=== PATIENT | female | born 1960 | race Caucasian/White ===

== ENCOUNTER 2016-08-27 10:40 | Outpatient (CLI) | payer BC ==
[2016-08-27 11:35] LABS: ALT (SGPT) 22 U/L (0-55); AST (SGOT) 22 U/L (5-34); Alkaline Phosphatase 78 U/L (40-150); Anion Gap 14 mmol/L (10-20); BUN (Urea Nitrogen) 17 mg/dL (9.8-20.1); Bilirubin, Total 0.4 mg/dL (0.2-1.2); Calc. Creatinine Clearance 0 mL/min (70-130); Calcium 9.1 mg/dL (7.8-10.44); Carbon Dioxide 24 mmol/L (22-29); Chloride 107 mmol/L (98-107); Estimated GFR-MDRD 55; LDL Cholesterol, Calculated 90 mg/dL; Protein, Total 7.1 g/dL (6.0-8.3)
[2016-08-27 15:19] LABS: Mean Platelet Volume 6.9 fL (7.4-10.4); Neutrophil 39 % (42-75); Reactive Lymphocytes 7 % (0-10); Red Blood Cell (RBC) Count 4.67 mill/uL (4.20-5.40); White Blood Cell (WBC) Count 5.5 thou/uL (4.8-10.8)
== END 2016-08-27 10:41 | disposition home or self-care (01) ==
LOC: NAV LAB 10:40
PROVIDERS: ATTEND Family Medicine
DX: E78.5 Hyperlipidemia, unspecified (principal); I10 Essential (primary) hypertension; F33.41 Major depressive disorder, recurrent, in partial remission
CPT/HCPCS: 36415; 80053; 80061; 84443; 85025

== ENCOUNTER 2016-12-04 22:53 | Emergency (ER) | payer BC, SELFPAY ==
[2016-12-04 23:20] LABS: Bilirubin Negative (Negative); Blood, Urine Negative (Negative); Clarity Clear (Clear); Glucose, Urine (Dipstick) Negative (Negative); Leukocyte Negative (Negative); Nitrite Negative (Negative); Protein, Urine (Dipstick) Trace mg/dL (Neg-Trace)
== END 2016-12-04 23:45 | disposition home or self-care (01) ==
LOC: NAV ERS 22:53
DX: R50.9 Fever, unspecified (principal); I10 Essential (primary) hypertension; E78.00 Pure hypercholesterolemia, unspecified; G62.9 Polyneuropathy, unspecified; F32.9 Major depressive disorder, single episode, unspecified; Z87.442 Personal history of urinary calculi; Z79.82 Long term (current) use of aspirin; Z79.899 Other long term (current) drug therapy
CPT/HCPCS: 81003; 99283

== ENCOUNTER 2017-07-25 14:40 | Outpatient (CLI) | payer BC ==
--- NOTE | 2017-07-25 15:07 | RAD ---
PA AND LATERAL CHEST: Date: 07/25/17 HISTORY: Acute bronchitis. FINDINGS: Heart size appears borderline. Mediastinal structures appear unremarkable. Lungs are clear of infiltr ates. IMPRESSION: Borderline heart size. POS: [facility]
== END 2017-07-25 14:41 | disposition home or self-care (01) ==
LOC: NAV RAD 14:40
PROVIDERS: ATTEND Family Medicine
DX: J20.9 Acute bronchitis, unspecified (principal)
CPT/HCPCS: 71020

== ENCOUNTER 2017-12-22 08:06 | Emergency (ER) | payer BC, SELFPAY ==
[2017-12-22] MEDS ORDERED: Lidocaine 1% 20 ML MDV ONE (08:44)
[2017-12-22] MEDS ORDERED: methylPREDNISolone Acetate 40 mg/ml Vial ONE (08:44)
[2017-12-22] MEDS ORDERED: cefTRIAXone\\ROCEPHIN 1 GM VIAL ONE (08:44)
== END 2017-12-22 09:19 | disposition home or self-care (01) ==
LOC: NAV ERS 08:06
DX: J20.9 Acute bronchitis, unspecified (principal); I10 Essential (primary) hypertension; E78.00 Pure hypercholesterolemia, unspecified; F32.9 Major depressive disorder, single episode, unspecified; Z79.899 Other long term (current) drug therapy; Z79.82 Long term (current) use of aspirin
CPT/HCPCS: 96372; J0696; J1030; J2001

== ENCOUNTER 2018-03-12 22:37 | Emergency (ER) | payer SELFPAY ==
[2018-03-12 23:00] LABS: Bilirubin Negative (Negative); Blood, Urine Negative (Negative); Clarity Clear (Clear); Glucose, Urine (Dipstick) Negative (Negative); Leukocyte Trace (Negative); Nitrite Negative (Negative); Protein, Urine (Dipstick) Trace mg/dL (Neg-Trace); Specific Gravity, Urine 1.015 (1.005-1.030); pH, Urine 5.5 (5.0-9.0)
[2018-03-12 23:07] LABS: Bacteria/HPF Rare-Few HPF (None Seen); RBC/HPF None Seen HPF (0-3); WBC/HPF 0-3 HPF (0-3)
[2018-03-12 23:08] LABS: Yeast-All Forms 1+ HPF (None Seen)
[2018-03-12] MEDS ORDERED: Ketorolac Tromethamine 30 MG/ML VIAL ONE (23:14)
[2018-03-12 23:42] LABS: #Basophils 0.1 thou/uL (0.0-0.2); #Lymphocytes 2.6 thou/uL (1.20-3.40); #Monocytes 0.7 thou/uL (0.11-0.59); #Neutrophils 2.7 thou/uL (1.40-6.50); %Basophils 1.6 % (0.0-1.0); %Eosinophils 0.3 % (0.0-10.0); %Monocytes 12.1 % (0.0-10.0); Hemoglobin 12.5 g/dL (12.0-16.0); Mean Corpuscular HGB CONC 32.8 g/dL (32.0-36.0); Mean Corpuscular Hemoglobin 28.8 pg (27.0-31.0); Mean Corpuscular Volume 87.8 fL (78.0-98.0); Mean Platelet Volume 7.4 fL (7.4-10.4); Platelet Count 282 thou/uL (130-400); RBC Distribution Width 11.4 % (11.5-14.5); Red Blood Cell (RBC) Count 4.33 mill/uL (4.20-5.40); White Blood Cell (WBC) Count 6.1 thou/uL (4.8-10.8)
[2018-03-12] MEDS ORDERED: Potassium Chloride 20 MEQ TAB ONE (23:50)
[2018-03-12 23:56] LABS: ALT (SGPT) 29 U/L (8-55); AST (SGOT) 28 U/L (5-34); Alkaline Phosphatase 85 U/L (40-150); Anion Gap 14 mmol/L (10-20); BUN (Urea Nitrogen) 17 mg/dL (9.8-20.1); Bilirubin, Total 0.5 mg/dL (0.2-1.2); Calc. Creatinine Clearance 0 mL/min (70-130); Calcium 9.4 mg/dL (7.8-10.44); Carbon Dioxide 23 mmol/L (22-29); Chloride 103 mmol/L (98-107); Estimated GFR-MDRD 63; Globulin 2.8 g/dL (2.4-3.5); Glucose 99 mg/dL (70-105); Protein, Total 6.8 g/dL (6.0-8.3); Sodium 137 mmol/L (136-145)
[2018-03-12 23:57] LABS: Potassium 2.9 mmol/L (3.5-5.1)
--- NOTE | 2018-03-12 23:57 | CT ---
CT OF THE ABDOMEN AND PELVIS WITHOUT CONTRAST: 03/12/18 INDICATION: Right flank pain and right suprapubic pain. FINDINGS: There is a 1.2 cm stone involving the inferior pole of the left kidney. There is a 2.3 mm stone invol ving the left mid kidney. No hydronephrosis is evident. There is a 2 mm stone seen within the left aspect of the bladder dome on image 93 of series 2. There is bibasilar atelectasis. There is a laparoscopic gastric band in place. Unopacified liver, spleen, pancreas and adrenal glands are unremarkable. There is a normal appendix in the right lower quadrant. There is scattered colonic diverticula. There is scattered degenerative and osteoarthritic change. IMPRESSION: 1. Small stone within the bladder may reflect a recently passed ureteral stone. No hydronephrosi s is evident. 2. Bilateral nephrolithiasis. 3. Laparoscopic gastric band. 4. Colonic diverticulosis. POS: [facility]
== END 2018-03-13 00:17 | disposition home or self-care (01) ==
LOC: NAV ERS 22:37
DX: N20.0 Calculus of kidney (principal); I10 Essential (primary) hypertension; E87.6 Hypokalemia; E78.00 Pure hypercholesterolemia, unspecified; F32.9 Major depressive disorder, single episode, unspecified; Z79.82 Long term (current) use of aspirin; Z79.899 Other long term (current) drug therapy
CPT/HCPCS: 74176; 80053; 81003; 81015; 85025; 96372; J1885

== ENCOUNTER 2018-07-09 22:23 | Emergency (ER) | payer BC, SELFPAY ==
[2018-07-09] MEDS ORDERED: Azithromycin 250 MG TAB ONE (22:51)
== END 2018-07-09 23:03 | disposition home or self-care (01) ==
LOC: NAV ERS 22:23
DX: J01.90 Acute sinusitis, unspecified (principal); I10 Essential (primary) hypertension; F32.9 Major depressive disorder, single episode, unspecified; E78.5 Hyperlipidemia, unspecified; G62.9 Polyneuropathy, unspecified; Z87.442 Personal history of urinary calculi; Z79.891 Long term (current) use of opiate analgesic; Z79.899 Other long term (current) drug therapy; Z79.82 Long term (current) use of aspirin
CPT/HCPCS: 99283

== ENCOUNTER 2022-05-24 09:30 | Outpatient (CLI) | payer OTHER | END 2022-05-24 09:31 | disposition home or self-care (01) | LOC: NAV LAB 09:30 → NAV RAD 09:31 | PROVIDERS: ATTEND Family Medicine | DX: M51.17 Intervertebral disc disorders with radiculopathy, lumbosacral region (principal); M54.6 Pain in thoracic spine; M47.816 Spondylosis without myelopathy or radiculopathy, lumbar region; M51.36 Other intervertebral disc degeneration, lumbar region; M47.814 Spondylosis without myelopathy or radiculopathy, thoracic region; Z98.890 Other specified postprocedural states | CPT/HCPCS: 72072; 72100 ==